=== PATIENT | male | born 1950 | race Caucasian/White ===

== ENCOUNTER 2020-09-07 13:17 | Inpatient (IN) | payer OTHER, BC ==
[2020-09-07 13:26] VITALS: BMI 27.1
[2020-09-07 14:53] LABS: BASO % 0.5 % (0-2.0); EOS % 2.2 % (0-4.5); HEMATOCRIT 38.1 % (35.4-49); HEMOGLOBIN 12.9 GM/dL (11.7-16.9); LYMPH % 22.8 % (8-40); MCH 31.8 pg (25.7-33.7); MCHC 33.9 g/dl (32.0-35.9); MEAN CELL VOLUME 93.8 fl (80-96); MEAN PLT VOLUME 8.8 fl (7.5-11.1); MONO % 12.6 % (3.8-10.2); NEUT % 61.9 % (42.8-82.8); PLATELET COUNT 256 K/MM3 (134-434); RBC 4.06 M/mm3 (4.00-5.60); RDW 15.2 % (11.9-15.9); WHITE BLOOD COUNT 7.8 K/mm3 (4.0-10.0)
[2020-09-07 15:02] LABS: INR 1.09 (0.83-1.09); PROTHROMBIN TIME (PATIENT) 13.2 SEC (9.7-13.0)
[2020-09-07 15:04] LABS: ACTIVATED PTT 35.5 SECONDS (25.2-36.5)
[2020-09-07 15:23] LABS: CHLORIDE 108 mmol/L (98-107); SODIUM 138 mmol/L (136-145)
[2020-09-07 15:25] LABS: ALBUMIN 3.9 g/dl (3.4-5.0); ANION GAP 5 MMOL/L (8-16); BLOOD UREA NITROGEN 29.6 mg/dL (7-18); CALCIUM 8.8 mg/dL (8.5-10.1); CO2 26 mmol/L (21-32)
[2020-09-07 15:27] LABS: GLUCOSE,RANDOM 85 mg/dL (74-106)
[2020-09-07 15:29] LABS: SGOT/AST 16 U/L (15-37); SGPT/ALT 19 U/L (13-61)
[2020-09-07 15:30] LABS: BILIRUBIN,TOTAL 0.6 mg/dL (0.2-1); CREATININE 1.2 mg/dL (0.55-1.3); TOT PROT 7.5 g/dl (6.4-8.2)
[2020-09-07 15:32] LABS: ALK PHOS 92 U/L (45-117)
[2020-09-07] MEDS ORDERED: LACTATED RINGERS SOLUTION 1000 ML INFUS.BAG IV ONE (15:37)
[2020-09-07] MEDS ORDERED: METOPROLOL TARTRATE 25 MG TABLET (FP) ONE (15:42)
[2020-09-07] MEDS: METOPROLOL TARTRATE 25 MG TABLET (FP) PO SCH (15:46)
[2020-09-07] MEDS ORDERED: ATORVASTATIN CA 40 MG TABLET (FP) PO ONE (23:48)
[2020-09-08] MEDS ORDERED: ATORVASTATIN CA 40 MG TABLET (FP) ONE (00:05)
[2020-09-08] MEDS ORDERED: METOPROLOL TARTRATE 25 MG TABLET (FP) ONE (00:05)
[2020-09-08] MEDS: METOPROLOL TARTRATE 25 MG TABLET (FP) PO SCH ×2 (00:07→10:04)
[2020-09-08] MEDS ORDERED: LEVOTHYROXINE NA 75 MCG TABLET (FP) ONE (06:04)
[2020-09-08] MEDS ORDERED: LEVOTHYROXINE NA 100 MCG TABLET (FP) ONE (06:05)
[2020-09-08] MEDS ORDERED: LEVOTHYROXINE 75 MCG, LEVOTHYROXINE 100 MCG PO SCH (07:00)
[2020-09-08] MEDS ORDERED: LEVOTHYROXINE NA 88 MCG TABLET (FP) PO SCH (07:00)
[2020-09-08] MEDS ORDERED: ASPIRIN 81 MG CHEWABLE TABLETS PO SCH (10:00)
[2020-09-08] MEDS ORDERED: LOSARTAN POTASSIUM 50 MG TABLET PO SCH (10:00)
[2020-09-08 15:09] VITALS: BP 126/66; PULSE 53; TEMP 98.3
== END 2020-09-08 17:07 | disposition short-term general hospital (02) | DRG 303 ==
LOC: JER 13:17 → JERBED 14:11 → J4W 09-08 02:46
PROVIDERS: ADMIT Internal Medicine Endocrinology, Diabetes & Metabolism; ATTEND Internal Medicine Endocrinology, Diabetes & Metabolism
DX: I25.110 Atherosclerotic heart disease of native coronary artery with unstable angina pectoris (principal); I10 Essential (primary) hypertension; E03.9 Hypothyroidism, unspecified; E78.5 Hyperlipidemia, unspecified; R94.39 Abnormal result of other cardiovascular function study
CPT/HCPCS: 36415; 71045-TC-FY; 71250-TC; 80053; 82550; 84443; 84484; 85025; 85610; 85730; 93005; 93010; 93351; 99285-25; C9803; U0003; U0005

== ENCOUNTER 2020-09-24 09:35 | Emergency (ER) | payer OTHER, BC ==
[2020-09-24 09:40] VITALS: BP 110/66; PULSE 63; TEMP 98.2; BMI 26.4
== END 2020-09-24 12:20 | disposition home or self-care (01) ==
LOC: FER 09:35
DX: M79.605 Pain in left leg (principal); R50.9 Fever, unspecified
CPT/HCPCS: 36415; 84484; 87804; 93005; 93971-TC; 99284-25; C9803; U0003; U0005